=== PATIENT | female | born 1970 | race Caucasian/White ===

== ENCOUNTER 2022-03-05 11:02 | Outpatient (CLI) | payer BC, SELFPAY ==
--- NOTE | 2022-03-05 11:30 | CRLHL7_ITS ---
For Patients: As a result of the Cures Act, medical imaging exams and procedure reports are released immediately into your electronic medical record. You may view this report before your referring provider. If you have questions, please contact your health care provider. BILATERAL SCREENING MAMMOGRAM WITH COMPUTER-AIDED DETECTION AND TOMOSYNTHESIS TECHNIQUE: CC and MLO views were obtained. These mammographic images have been obtained using full-field digital technique. These mammographic images were interpreted with the benefit of computer-aided detection. Breast Tomosynthesis was used in this interpretation. COMPARISON FILM: 10/30/19, 07/21/18, 03/18/17. FINDINGS: There are scattered areas of fibroglandular density IMPRESSION: There is no radiographic evidence for malignancy. ASSESSMENT: BI-RADS Category 1: Negative RECOMMENDATION: Routine screening mammogram in 1 year. A lay language report of this examination will be provided to the patient. Nestor Jaime M.D. Diagnostic Radiologist [email or web address] BLANKA/[email or web address] / be/Dictated by: Nestor Jaime MD @ 03/05/2022 12:46:00 PM (Electronically Signed)
== END 2022-03-05 11:03 | disposition home or self-care (01) ==
LOC: MAMMO 11:05
PROVIDERS: PCP Family Medicine; Visit Provider Family Medicine
DX: Z12.31 Encounter for screening mammogram for malignant neoplasm of breast (principal)
CPT/HCPCS: 77063; 77067; 80053; 80061; 82306; 82728; 84443

== ENCOUNTER 2022-04-16 09:40 | Outpatient (CLI) | payer BC, SELFPAY ==
--- NOTE | 2022-04-16 12:32 | W.ANESCHARGE ---
Anesthesia Charges Start Date/Time Anesthesia Start Date: 04/16/22 Anesthesia Start Time: 11:50 Stop Date/Time Anesthesia Stop Date: 04/16/22 Anesthesia Stop Time: 12:11 Summary Emergency: No
== END 2022-04-16 09:41 | disposition home or self-care (01) ==
LOC: OP CLINIC 09:42
PROVIDERS: PCP Family Medicine; Visit Provider Internal Medicine
DX: Z12.11 Encounter for screening for malignant neoplasm of colon (principal)
CPT/HCPCS: 00812; 45378; J2704

== ENCOUNTER 2022-09-03 09:15 | Outpatient (CLI) | payer BC, SELFPAY | END 2022-09-03 09:16 | disposition home or self-care (01) | PROVIDERS: PCP Family Medicine; Referring Provider Family Medicine; Visit Provider Family Medicine | DX: I10 Essential (primary) hypertension (principal); E78.5 Hyperlipidemia, unspecified; R73.03 Prediabetes; E55.9 Vitamin D deficiency, unspecified; D50.9 Iron deficiency anemia, unspecified | CPT/HCPCS: 80053; 80061 ==

== ENCOUNTER 2022-11-15 12:45 | Outpatient (CLI) | payer BC, SELFPAY | END 2022-11-15 12:46 | disposition home or self-care (01) | LOC: RAD 12:47 | PROVIDERS: PCP Family Medicine; Visit Provider Family Medicine | DX: I51.7 Cardiomegaly (principal) | CPT/HCPCS: 93306; T1013 ==

== ENCOUNTER 2022-12-30 16:00 | Outpatient (CLI) | payer BC, SELFPAY | END 2022-12-30 16:01 | disposition home or self-care (01) | LOC: NFLDREF 12-31 06:31 | PROVIDERS: PCP Family Medicine; Referring Provider Family Medicine; Visit Provider Family Medicine | DX: I10 Essential (primary) hypertension (principal) | CPT/HCPCS: 80048 ==

== ENCOUNTER 2023-02-08 08:00 | Outpatient (CLI) | payer BC, SELFPAY | END 2023-02-08 08:01 | disposition home or self-care (01) | LOC: NFLDREF 12:53 | PROVIDERS: PCP Family Medicine; Referring Provider Family Medicine; Visit Provider Family Medicine | DX: I10 Essential (primary) hypertension (principal) | CPT/HCPCS: 80048; T1013 ==

== ENCOUNTER 2023-03-29 08:05 | Outpatient (CLI) | payer BC, SELFPAY | END 2023-03-29 08:06 | disposition home or self-care (01) | LOC: NFLDREF 03-31 16:49 | PROVIDERS: PCP Family Medicine; Referring Provider Family Medicine; Visit Provider Family Medicine | DX: E78.5 Hyperlipidemia, unspecified (principal); R73.03 Prediabetes; E55.9 Vitamin D deficiency, unspecified; I10 Essential (primary) hypertension | CPT/HCPCS: 80053; 80061; 82306 ==

== ENCOUNTER 2023-04-22 16:08 | Outpatient (CLI) | payer BC, SELFPAY | END 2023-04-22 16:09 | disposition home or self-care (01) | LOC: NFLDREF 04-29 14:39 | PROVIDERS: PCP Family Medicine; Referring Provider Family Medicine; Visit Provider Family Medicine | DX: I10 Essential (primary) hypertension (principal); E03.9 Hypothyroidism, unspecified | CPT/HCPCS: 80048; 84443 ==

== ENCOUNTER 2023-08-19 08:20 | Outpatient (CLI) | payer BC, SELFPAY | END 2023-08-19 08:21 | disposition home or self-care (01) | LOC: NFLDREF 08-26 08:44 | PROVIDERS: PCP Family Medicine; Referring Provider Family Medicine; Visit Provider Family Medicine | DX: E03.9 Hypothyroidism, unspecified (principal); E55.9 Vitamin D deficiency, unspecified; E78.5 Hyperlipidemia, unspecified; I10 Essential (primary) hypertension; R73.03 Prediabetes | CPT/HCPCS: 80053; 80061; 82306; 84443 ==

== ENCOUNTER 2023-08-26 09:02 | Outpatient (CLI) | payer BC, SELFPAY ==
--- NOTE | 2023-08-26 09:15 | MM_ITS ---
Patient: ARIANA ESTRADA Facility:?[facility] Patient ID:?[id number] Site Patient ID:?[id number]. Site :?[id number] Study:?XRay-Breast Bilateral 3D-08/26/2023 9:26:02 AM Ordering Physician:Júnior Final Report: BILATERAL SCREENING MAMMOGRAM WITH COMPUTER-AIDED DETECTION AND TOMOSYNTHESIS TECHNIQUE: CC and MLO views were obtained. These mammographic images have been obtained using full-field digital technique. These mammographic images were interpreted with the benefit of computer-aided detection. Breast Tomosynthesis was used in this interpretation. COMPARISON FILM: 03/05/2022, 10/30/2019, 07/21/2018. FINDINGS: The breasts are heterogeneously dense, which may obscure small masses. IMPRESSION: There is no radiographic evidence for malignancy. ASSESSMENT: BI-RADS Category 1: Negative RECOMMENDATION: Routine screening mammogram in 1 year. A lay language report of this examination will be provided to the patient. Nestor Jaime M.D. Diagnostic Radiologist [facility] [email or web address] DSM/sp R& Transcribed: 5:44 p.m. SP/Dictated by: Nestor Jaime MD @ 08/26/2023 10:55:00 AM Signed by:?Nestor Jaime MD @08/26/2023 8:19:13 PM (Electronic Signature)
== END 2023-08-26 09:03 | disposition home or self-care (01) ==
LOC: MAMMO 09:03
PROVIDERS: PCP Family Medicine; Visit Provider Family Medicine
DX: Z12.31 Encounter for screening mammogram for malignant neoplasm of breast (principal); R92.2 Inconclusive mammogram
CPT/HCPCS: 77063; 77067; T1013

== ENCOUNTER 2023-12-16 08:40 | Outpatient (CLI) | payer BC, SELFPAY ==
--- OUTSIDE RECORDS SUMMARY | 2023-12-16 17:56 | XMS_ITS | Clinical Summary ---
Author Organization [employer] [facility] Address [place], [place] [address] Care Team Providers Care Vocational Coordinator Name Role Phone VotelBryson MD Primary Care Provider + Allergies No known active allergies Medications Medication Sig Dispensed Refills Start Date End Date Status cholecalciferol (VITAMIN D) 1,000 unit capsule Take 1 capsule by mouth once daily. 0 09/13/2014 Active hydrocortisone 2.5% cream Apply topically to affected area(s) 2 times daily. 1 Tube 0 09/13/2014 Active Active Problems No known active problems Social History Tobacco Use Types Packs/Day Years Used Date Smoking Tobacco: Never Smokeless Tobacco: Never Tobacco Cessation:Counseling Given: Yes Alcohol Use Standard Drinks/Week Comments No 0 (1 standard drink = 0.6 oz pur e alcohol) Sex and Gender Information Value Date Recorded Sex Assigned at Not on file Gender Identity Not on file Sexual Orientation Not on file Obstetrics History Last Filed Vital Signs Vital Sign Reading Time Taken Comments Blood Pressure 155/93 09/13/2014 7:24 PM CDT Pulse 111 09/13/2014 7:24 PM CDT Temperature 37 ??C (98.6 ??F) 09/13/2014 6:54 PM CDT Respiratory Rate - - Oxygen Saturation 100% 09/13/2014 6:54 PM CDT Inhaled Oxygen Concentration - - Weight 62.4 kg (137 lb 8 oz) 09/13/2014 6:54 PM CDT Height 152.4 cm (5') 03/25/2008 2:53 PM CDT Body Mass Index 26.85 03/25/2008 2:53 PM CDT Plan of Treatment Health Maintenance Due Date Last Done Comments Tdap 1980 Depression screening for age 12+ 1981 HIV for age 15-65 1984 BMI (ht and wt on same day) for age 18+ 10/31/1987 Hepatitis C screening for age 18-79 10/31/1987 Tetanus booster 1989 Colonoscopy through age 75 2014 Lipids for age 45-75 2014 Mammogram for age 45-75 02/15/2016 02/14/2015 Zoster (shingles) series for age 50+ (1 of 2) 10/31/2019 COVID-19 vaccine series (24 season) 2023 07/09/2021, 09/26/2020, 09/06/2020 Influenza for age 50-64 02/05/2024 Pap test for age 21-65 03/05/2025 , 03/05/2022, 03/18/2017, Additional history exists Pneumococcal series for age 6-64 Aged Out No longer eligible based on patient's age to complete this topic Procedures Procedure Name Priority Date/Time Associated Diagnosis Comments NET DEVELOPER SOFTWARE ENGINEER C THIN PREP PAP SCREEN IMAGED Routine 03/05/2022 10:30 AM CDT SCAN-MAMMOGRAPHY REPORT 02/14/2015 12:00 AM CDT from Last 3 Months or Most Recently Relevant to Health Maintenance Results * NET DEVELOPER SOFTWARE ENGINEER C THIN PREP PAP SCREEN IMAGED (03/05/2022 10:30 AM CDT) Case Report Gynecologic Cytology Report ? Case: [id number] ? Authorizing Provider: ??Yasmine Humphrey MD ??Collected: ? 03/05/2022 1030 ? Ordering Location: ? [facility] ?Received: ?03/08/2022 0807 ? First Screen: ?Baccam, Minie ? Rescreen: ?Lila Bills ? Specimen: ?NET DEVELOPER SOFTWARE ENGINEER C ThinPrep Vial Screening, Cervical/Vaginal ? 03/26/2022 11:14 AM [facility] ENTR[facility]AT[facility] INTERPRETATION/ RESULT NEGATIVE FOR INTRAEPITHELIAL LESION OR MALIGNANCY (NIL) (none) 03/26/2022 11:14 AM [facility] NISM(S) Shift in maria r suggestive of bacterial vaginosis 03/26/2022 11:14 AM [facility] SPECIMEN ADEQUACY Satisfactory for evaluation Endocervical component present 03/26/2022 11:14 AM CDT [facility]- ENTRAL LABORATORY HPV REQUEST HPV not requested 2021 11:14 AM CDT [facility]-C ENTRAL LABORATORY Date of LMP 03/26/2022 11:14 AM T [facility] ENTRAL LABORATORY Comment:Postmenopausal Last Pap Date 03/18/2017 03/26/2022 11:14 AM CDT [facility]- ENTRAL LABORATORY Last Pap Result NIL 11:14 AM CDT [facility]-C ENTRAL LABORATORY Abnormal Pap or Lamont Bx in last 5 years Yes 03/26/2022 11:14 AM CDT [facility] Menstrual Status Postmenopausal 03/26/2022 11:14 AM CDT [facility] Additional Information 03/26/2022 11:14 AM CDT [facility] ENTRMD LABORATORY Comment: Interpreted at [facility] - [address], [place] [address] Automated Review Successful 03/26/2022 11:14 AM CDT [facility] Comment:Specimen processed s uccessfully by automated fibre cement moulder device, ThinPrep Imaging System, [employer] Note The pap test is a screening technique, not a diagnostic procedure. It is used primarily to screen for squamous cancers and precursor lesions. Published studies have shown that it is subject to both false negative and false positive results. The pap test should not be used as the sole means to diagnose or exclude pre-malignant and malignant lesions. 03/26/2022 11:14 AM CDT [facility] Other (Cervical/Vagina l) 03/05/2022 10:30 AM CDT 03/08/2022 8:07 AM CDT Yasmine Humphrey MD PATHOLOGY/CYTOLO GY [facility] [address] [place] [address], [place] * SCAN-MAMMOGRAPHY REPORT (02/14/2015 12:00 AM CDT) Anatomical Region Laterality Modality Other Scanner OTHER from Last 3 Months or Most Recently Relevant to Health Maintenance Care Teams Vocational Coordinator Relationship Specialty Start Date End Date Votel, Bryson Alcantar MD [address] [place] [address] PCP - General 11/03/05
== END 2023-12-16 08:41 | disposition home or self-care (01) ==
LOC: NFLDREF 17:54
PROVIDERS: PCP Family Medicine; Referring Provider Family Medicine; Visit Provider Family Medicine
DX: E78.5 Hyperlipidemia, unspecified (principal); R73.03 Prediabetes; I10 Essential (primary) hypertension
CPT/HCPCS: 80053; 80061

== ENCOUNTER 2024-05-07 08:29 | Outpatient (CLI) | payer BC, SELFPAY ==
--- OUTSIDE RECORDS SUMMARY | 2024-05-08 09:16 | XMS_ITS | Clinical Summary ---
Author Organization [employer] [facility] Address [place], [place] [address] Care Team Providers Care Fiscal Clerk Name Role Phone Votel, Bryson Alcantar MD Primary Care Provider + Allergies No [...] 111 09/13/2014 7:24 PM CDT Temperature 37 C (98.6 F) 09/13/2014 6:54 PM CDT Respiratory Rate - [...] (1 of 2) 10/31/2019 COVID-19 vaccine series (2023- season) 2024 07/09/2021, 09/26/2020, 09/06/2020 Influenza for age 50-64 02/05/2024 Pap test for age 21-65 03/05/2025 , 03/05/2022, 03/18/2017, Additional history exists Pneumococcal series for age 6-64 Aged Out No longer eligible based on patient's age to complete this topic Procedures Procedure Name Priority Date/Time Associated Diagnosis Comments UTILITY SPRAY OPERATOR THIN PREP PAP SCREEN IMAGED Routine 03/05/2022 10:30 AM CDT SCAN-MAMMOGRAPHY REPORT 02/14/2015 12:00 AM CDT from Last 3 Months or Most Recently Relevant to Health Maintenance Results * UTILITY SPRAY OPERATOR THIN PREP PAP SCREEN IMAGED (03/05/2022 10:30 AM CDT) Case Report Gynecologic Cytology Report Case: [id number] Authorizing Provider: Yasmine Humphrey MD Collected: 03/05/2022 1030 Ordering Location: [facility] Received: 03/08/2022 0807 First Screen: Baccam, Minie Rescreen: Lila Bills Specimen: UTILITY SPRAY OPERATOR ThinPrep Vial Screening, Cervical/Vaginal 03/26/2022 11:14 AM CDT [facility]-C ENTRAL LABORATORY INTERPRETATION/ RESULT NEGATIVE FOR INTRAEPITHELIAL LESION OR MALIGNANCY (NIL) (none) 03/26/2022 11:14 AM CDT [facility]-C ENTRAL LABORATORY NISM(S) Shift in maria r suggestive of bacterial vaginosis 03/26/2022 11:14 AM CDT [facility]-C ENTRAL LABORATORY SPECIMEN ADEQUACY Satisfactory for evaluation Endocervical component present 03/26/2022 11:14 AM CDT [facility]-C ENTRAL LABORATORY HPV REQUEST HPV not requested 2021 11:14 AM CDT [facility]-C ENTRAL LABORATORY Date of LMP 03/26/2022 11:14 AM CDT [facility] ENTRAL LABORATORY Comment:Postmenopausal Last Pap Date 03/18/2017 03/26/2022 11:14 AM CDT [facility] ENTRAL LABORATORY Last Pap Result NIL 11:14 AM CDT [facility] ENTRAL LAB[facility]ORY Abnormal Pap or Show Low Bx in last 5 years Yes 03/26/2022 11:14 AM CDT [facility] ENTRAL LABORATORY Menstrual Status Postmenopausal 03/26/2022 11:14 AM CDT [facility] ENTRAL LAB[facility]ATORY Additional Information 03/26/2022 11:14 AM CDT [facility] ENTRAL LABORATORY Comment: Interpreted at [facility], Central Laboratory - [address], [place] [address] Automated Review Successful 03/26/2022 11:14 AM CDT [facility] ENTRAL LABORATORY Comment:Specimen processed s uccessfully by automated icer machine device, ThinPrep Imaging System, [employer] Note The pap test is a [...] and malignant lesions. 03/26/2022 11:14 AM CDT [facility] ENTRAL LABORATORY Other (Cervical/Vagina l) 03/05/2022 10:30 AM CDT 03/08/2022 8:07 AM CDT Yasmine Humphrey MD PATHOLOGY/CYTOLO GY [facility]CENTRAL LABORATORY [address] [place] [address], [place] * SCAN-MAMMOGRAPHY REPORT (02/14/2015 12:00 AM CDT) Anatomical Region Laterality Modality Other Scanner OTHER from Last 3 Months or Most Recently Relevant to Health Maintenance Care Teams Fiscal Clerk Relationship Specialty Start Date End Date Votel, Bryson Alcantar MD [address] [place] [address] PCP - General 11/03/05
== END 2024-05-07 08:30 | disposition home or self-care (01) ==
LOC: NFLDREF 05-08 09:15
PROVIDERS: PCP Family Medicine; Referring Provider Family Medicine; Visit Provider Family Medicine
DX: I10 Essential (primary) hypertension (principal); E78.5 Hyperlipidemia, unspecified; R73.03 Prediabetes
CPT/HCPCS: 80053; 80061

== ENCOUNTER 2024-05-11 10:39 | Outpatient (CLI) | payer BC, SELFPAY ==
--- OUTSIDE RECORDS SUMMARY | 2024-05-11 10:41 | XMS_ITS | Clinical Summary ---
Author Organization [employer] [facility] Address [place], [place] [address] Care Team Providers Care Call Specialist Name Role Phone Votel, Bryson Alcantar MD [...] Procedure Name Priority Date/Time Associated Diagnosis Comments CLINICAL CYTOGENETICIST THIN PREP PAP SCREEN IMAGED Routine 03/05/2022 10:30 AM CDT SCAN-MAMMOGRAPHY REPORT 02/14/2015 12:00 AM CDT from Last 3 Months or Most Recently Relevant to Health Maintenance Results * CLINICAL CYTOGENETICIST THIN PREP PAP SCREEN IMAGED (03/05/2022 10:30 AM CDT) Case Report Gynecologic Cytology Report Case: [id number] Authorizing Provider: Yasmine Humphrey MD Collected: 03/05/2022 1030 Ordering Location: [facility] Received: 03/08/2022 0807 First Screen: Baccam, Minie Rescreen: Lila Bills Specimen: CLINICAL CYTOGENETICIST ThinPrep Vial Screening, Cervical/Vaginal 03/26/2022 11:14 AM CDT [facility]-C ENTRAL LABORATORY INTERPRETATION/ RESULT NEGATIVE FOR INTRAEPITHELIAL LESION OR MALIGNANCY (NIL) (none) 03/26/2022 11:14 AM CDT [facility] ENTRAL LABORATORY NISM(S) Shift in maria r suggestive of bacterial vaginosis 03/26/2022 11:14 AM CDT [facility]-C ENTRAL LABORATORY SPECIMEN ADEQUACY Satisfactory for evaluation Endocervical component present 03/26/2022 11:14 AM CDT [facility]-C ENTRAL LABORATORY HPV REQUEST HPV not requested 2021 11:14 AM CDT [facility] ENTRAL LABORATORY Date of LMP 03/26/2022 11:14 AM CDT [facility] ENTRAL LABORATORY Comment:Postmenopausal Last Pap Date 03/18/2017 03/26/2022 11:14 AM CDT [facility] ENTRAL LAB[facility] Last Pap Result NIL 11:14 AM CDT [facility] EN[facility] LAB[facility]ORY Abnormal Pap or Adams Bx in last 5 years Yes 03/26/2022 11:14 AM CDT [facility] EN[facility]AL [facility] Menstrual Status Postmenopausal 03/26/2022 11:14 AM CDT [facility] EN[facility] Additional Information 03/26/2022 11:14 AM CDT [facility] ENTRAL LABORATORY Comment: Interpreted at [facility], Central Laboratory - [address], [place] [address] Automated Review Successful 03/26/2022 11:14 AM CDT [facility] [employer] [facility] ENTRAL LAB[facility] Comment:Specimen processed s uccessfully by automated senior firewall engineer device, ThinPrep Imaging System, [employer] Note The pap test is a [...] and malignant lesions. 03/26/2022 11:14 AM CDT [facility] [employer] [place] [facility] ENTRAL LAB[facility]ATORY Other (Cervical/Vagina l) 03/05/2022 10:30 AM CDT 03/08/2022 8:07 AM CDT Yasmine Humphrey MD PATHOLOGY/CYTOLO GY [facility]-C[facility]TRAL LABORATORY [address] [place] [address], [place] * SCAN-MAMMOGRAPHY REPORT (02/14/2015 12:00 AM CDT) Anatomical Region Laterality Modality Other Scanner OTHER from Last 3 Months or Most Recently Relevant to Health Maintenance Care Teams Call Specialist Relationship Specialty Start Date End Date Votel, Bryson Alcantar MD [address] [place] [address] PCP - General 11/03/05
== END 2024-05-11 10:40 | disposition home or self-care (01) ==
LOC: NFLDREF 10:40
PROVIDERS: PCP Family Medicine; Visit Provider Family Medicine
DX: R30.0 Dysuria (principal)
CPT/HCPCS: 87086

== ENCOUNTER 2024-08-10 08:10 | Outpatient (CLI) | payer BC, SELFPAY | END 2024-08-10 08:11 | disposition home or self-care (01) | LOC: NFLDREF 08-12 16:12 | PROVIDERS: PCP Family Medicine; Referring Provider Family Medicine; Visit Provider Family Medicine | DX: E78.5 Hyperlipidemia, unspecified (principal); I10 Essential (primary) hypertension; E11.9 Type 2 diabetes mellitus without complications | CPT/HCPCS: 80053; 80061; 82043; 82570 ==

== ENCOUNTER 2024-09-28 15:42 | Outpatient (CLI) | payer BC, SELFPAY | END 2024-09-28 15:43 | disposition home or self-care (01) | LOC: NFLDREF 10-02 06:09 | PROVIDERS: PCP Family Medicine; Referring Provider Family Medicine; Visit Provider Family Medicine | DX: I10 Essential (primary) hypertension (principal) | CPT/HCPCS: 80048 ==

== ENCOUNTER 2024-11-09 09:26 | Outpatient (CLI) | payer BC, SELFPAY | END 2024-11-09 09:27 | disposition home or self-care (01) | LOC: NFLDREF 11-10 18:48 | PROVIDERS: PCP Family Medicine; Referring Provider Family Medicine; Visit Provider Family Medicine | DX: E11.9 Type 2 diabetes mellitus without complications (principal); I10 Essential (primary) hypertension; E55.9 Vitamin D deficiency, unspecified; E78.5 Hyperlipidemia, unspecified | CPT/HCPCS: 80053; 80061; 84443 ==

== ENCOUNTER 2025-01-04 14:53 | Outpatient (CLI) | payer BC, SELFPAY ==
--- NOTE | 2025-01-04 15:00 | CRLHL7_ITS ---
For Patients: As a result of the Century Cures Act, medical imaging exams and procedure reports are released immediately into your electronic medical record. You may view this report before your referring provider. If you have questions, please contact your health care provider. INDICATION: BILATERAL SCREENING MAMMOGRAM, ASYMPTOMATIC 54 Y/O FEMALE COMPARISON: 08/26/2023, 03/05/2022, 10/27/2019 TECHNIQUE: Digital mammogram in CC and MLO projections including computer-aided detection (CAD) and tomosynthesis. BREAST COMPOSITION: There are scattered areas of fibroglandular density. FINDINGS: No suspicious findings. ASSESSMENT: BI-RADS 1 Negative RECOMMENDATION: Annual screening mammogram. A lay language report of this examination will be provided to the patient. Dictated by: Nestor Jaime MD @ 01/07/2025 08:27:06 (Electronically Signed)
== END 2025-01-04 14:54 | disposition home or self-care (01) ==
LOC: MAMMO 14:53
PROVIDERS: PCP Family Medicine; Visit Provider Family Medicine
DX: Z12.31 Encounter for screening mammogram for malignant neoplasm of breast (principal)
CPT/HCPCS: 77063; 77067

== ENCOUNTER 2025-03-01 09:01 | Outpatient (CLI) | payer BC, SELFPAY | END 2025-03-01 09:02 | disposition home or self-care (01) | LOC: NFLDREF 03-04 08:15 | PROVIDERS: PCP Family Medicine; Referring Provider Family Medicine; Visit Provider Family Medicine | DX: E11.9 Type 2 diabetes mellitus without complications (principal); I10 Essential (primary) hypertension; E78.5 Hyperlipidemia, unspecified; E55.9 Vitamin D deficiency, unspecified; L65.9 Nonscarring hair loss, unspecified | CPT/HCPCS: 80053; 80061; 82306; 82607; 82728 ==